=== PATIENT | male | born 1965 | race Caucasian/White ===

== ENCOUNTER 2024-09-15 15:58 | Emergency (ER) | payer OTHER, SELFPAY ==
--- OUTSIDE RECORDS SUMMARY | 2024-09-15 16:00 | XMS REPORT | Continuity of Care Document ---
Author Name Unknown Address [address] [facility] [address] [place] [address] [facility] thconnect Address [address] [facility] [address] [place] [address] Care Team Providers Care Driver Examiner Name Role Phone Unavailable Unavailable Unavailable Payers Payer Name Policy Type Policy Number Effective Date Expirati on Date Source Encounters Start Date/Time End Date/Time Encounter Type Admission Type Attending Clinicians Care Facility Care Department Encounter ID Source 2024-04-02 10:48:00 Inpatient [facility] [id number] [facility] 2024-03-07 13:41:00 Inpatient [facility] [id number] [facility]
[2024-09-15] MEDS ORDERED: MORPHINE 4 MG/ML SYR ONE ×3 (16:40→23:04)
[2024-09-15] MEDS ORDERED: ONDANSETRON 4 MG/2 ML VIAL ONE ×2 (16:40→22:52)
[2024-09-15] MEDS ORDERED: DIAZEPAM 10 MG/2 ML INJ SYRINGE ONE ×2 (17:33→23:51)
--- NOTE | 2024-09-15 18:53 | ER ---
Nurse's Notes [facility] Name: Antonio Jade Age: 59 yrs Sex: Male : 1965 Arrival Date: 09/15/2024 Time: 15:58 Bed 24 Private MD: Diagnosis: Grade 2 left renal laceration, Fractures lateral left 9th rib and posterior lateral left 10th rib. Moderate left pleural effusion Presentation: 09/15 16:21 Coronavirus screen: Client denies travel out of the [place] in the last 14 days. At this ll1 time, the client does not indicate any symptoms associated with coronavirus-19. Ebola Screen: Patient denies travel to an Ebola-affected area in the 21 days before illness onset. Initial Sepsis Screen: Does the patient meet any 2 criteria? No. Patient's initial sepsis screen is negative. Does the patient have a suspected source of infection? No. Patient's initial sepsis screen is negative. Risk Assessment: Do you want to hurt yourself or someone else? Patient reports no desire to harm self or others. Onset of symptoms was September 12, 2024. 16:21 Method Of Arrival: Wheelchair ll1 16:21 Acuity: ANABELLE 3 ll1 16:21 Chief complaint: Patient states: Severe L sided rib pains since Sunday. Has 5 ribs ll1 broken per [place]. Didn't want to be admitted, but cannot sleep. Triage Assessment: 16:22 General: Appears distressed, uncomfortable, Behavior is cooperative, appropriate for ll1 age, restless. Pain: Complains of pain in right lateral anterior chest. Respiratory: Reports shortness of breath pain with respiration states has 5 broken ribs. Historical: - Allergies: 16:20 No Known Allergies; ll1 - PMHx: 16:20 Hypertensive disorder; ll1 - PSHx: 16:20 shoulder surgery; ll1 - Immunization history:: Adult Immunizations up to date. - Social history:: Smoking status: Patient denies any tobacco usage or history of. Screenin/22 00:53 [facility] ED Fall Risk Assessment (Adult) History of falling in the last 3 months, jb4 including since admission Yes- single mechanical fall (1 pt) Confusion or Disorientation No (0 pts) Intoxicated or Sedated No (0 pts) Impaired Gait No (0 pts) Mobility Assist Device Used No (0 pt) Altered Elimination No (0 pt) Score/Fall Risk Level 0 - 2 = Low Risk Oriented to surroundings, Maintained a safe environment. Abuse screen: Denies threats or abuse. Nutritional screening: No deficits noted. Tuberculosis screening: No symptoms or risk factors identified. Assessment: 09/15 17:00 General: Appears in no apparent distress. uncomfortable, Behavior is cooperative, jb4 anxious. Pain: Complains of pain in left lateral anterior chest Pain does not radiate. Pain currently is 10 out of 10 on a pain scale. Neuro: Level of Consciousness is awake, alert, obeys commands, Oriented to person, place, time, situation. Cardiovascular: Patient's skin is warm and dry. Respiratory: Airway is patent Respiratory effort is even, unlabored, Respiratory pattern is regular, symmetrical. GI: No signs and/or symptoms were reported involving the gastrointestinal system. : No signs and/or symptoms were reported regarding the genitourinary system. EENT: No signs and/or symptoms were reported regarding the EENT system. Derm: Skin is intact, Skin is pink, warm \T\ dry. 18:00 Reassessment: Patient appears in no apparent distress at this time. Patient and/or jb4 family updated on plan of care and expected duration. Pain level reassessed. Patient is alert, oriented x 3, equal unlabored respirations, skin warm/dry/pink. 19:00 Reassessment: Patient appears in no apparent distress at this time. Patient and/or jb4 family updated on plan of care and expected duration. Pain level reassessed. Patient is alert, oriented x 3, equal unlabored respirations, skin warm/dry/pink. Patient states feeling better. 20:00 Reassessment: Pt is resting in bed with eyes closed, respirations are even and jb4 unlabored. 21:14 Reassessment: Patient appears in no apparent distress at this time. No changes from jb4 previously documented assessment. Patient and/or family updated on plan of care and expected duration. Pain level reassessed. 22:00 Reassessment: Patient appears in no apparent distress at this time. Patient and/or jb4 family updated on plan of care and expected duration. Pain level reassessed. Patient is alert, oriented x 3, equal unlabored respirations, skin warm/dry/pink. 23:00 Reassessment: Patient appears in no apparent distress at this time. Patient and/or jb4 family updated on plan of care and expected duration. Pain level reassessed. Patient is alert, oriented x 3, equal unlabored respirations, skin warm/dry/pink. 09/16 00:00 Reassessment: Pt resting comfortably in bed with eyes closed, on 2L NC due to desat to jb4 88% while sleeping. 00:56 Reassessment: Pt remains on 2L NC, Resting with eyes closed,respirations are even and jb4 unlabored with no s/s of pain or distress noted at this time. 02:07 Reassessment: Patient appears in no apparent distress at this time. Patient and/or jb4 family updated on plan of care and expected duration. Pain level reassessed. Patient is alert, oriented x 3, equal unlabored respirations, skin warm/dry/pink. Vital Signs: 09/15 16:21 BP 174 / 119; Pulse 94; Resp 18; Temp 97.5; Pulse Ox 99% ; Weight 95.25 kg; Height 6 ll1 ft. 0 in. ; Pain 10/10; 16:48 BP 170 / 110; Pulse 89; Resp 16; Pulse Ox 98% on R/A; jb4 19:44 BP 156 / 95; Pulse 95; Resp 16; Pulse Ox 93% on R/A; jb4 20:15 BP 165 / 107; Pulse 89; Resp 15; Pulse Ox 95% on R/A; jb4 20:58 BP 149 / 90; Pulse 92; Resp 15; Pulse Ox 92% on R/A; jb4 22:30 BP 132 / 81; Pulse 84; Resp 15; Pulse Ox 92% on R/A; jb4 23:30 BP 137 / 91; Pulse 91; Resp 16; Pulse Ox 93% on R/A; jb4 09/16 00:45 BP 150 / 104; Pulse 85; Resp 15; Pulse Ox 99% on 2 lpm NC; jb4 09/15 16:21 Body Mass Index 28.48 (95.25 kg, 182.88 cm) ll1 09/15 16:21 Pain Scale: Adult ll1 ED Course: 09/15 16:00 Patient arrived in ED. ra3 16:02 Arm band placed on. ll1 16:16 Perico Ventura MD is Attending Physician. bo1 16:21 Triage completed. ll1 16:45 Inserted saline lock: 18 gauge in right antecubital area, using aseptic technique. jb4 18:51 Lore Chiu FNP is Hospitalizing Provider. bo1 20:21 Urinalysis w/ reflexes Sent. jb4 20:22 Basic Metabolic Panel Sent. jb4 20:22 CBC with Diff Sent. jb4 20:39 CT Chest Wo Con In Process Unspecified. EDMS 20:54 Chance Gutierrez, RN is Primary Nurse. jb4 22:35 Attending Physician role handed off by Perico Ventura MD sp4 22:35 Alpesh Urena MD is Attending Physician. sp4 23:32 CT Chest, Abdomen, Pelvis - W/Contrast In Process Unspecified. EDMS 09/16 00:51 Initiated transfer with Megan at [facility]. rv1 00:53 Patient has correct armband on for positive identification. Bed in low position. Call jb4 light in reach. Side rails up X 1. Provided Education on: plan of care. 00:54 No provider procedures requiring assistance completed. Patient transferred, IV remains jb4 in place. 01:[address] Darling to [facility] ER. rv1 01:10 Maged with [facility] gave 15 min ETA. rv1 Administered Medications: 09/15 16:47 Drug: morphine IVP or IV 4 mg IVP once over 4 mins Route: IVP; Infused Over: 4 mins; jb4 Site: right antecubital; 17:11 Follow up: Response: No adverse reaction; Pain is unchanged, physician notified; RASS: jb4 Alert and Calm (0) 16:48 Drug: Ondansetron IVP 4 mg IVP once; over 2 minutes Route: IVP; Site: right antecubital;jb4 17:41 Follow up: Response: No adverse reaction; Marked relief of symptoms jb4 17:11 Drug: morphine IVP or IV 4 mg IVP once over 4 mins Route: IVP; Infused Over: 4 mins; jb4 Site: right antecubital; 17:41 Follow up: Response: No adverse reaction; Pain is unchanged, physician notified; RASS: jb4 Alert and Calm (0) 17:39 Drug: Diazepam IVP 5 mg IVP once Route: IVP; Site: right antecubital; jb4 18:00 Follow up: Response: No adverse reaction; Pain is decreased; RASS: Drowsy (-1) jb4 19:20 Drug: HYDROmorphone IVP 1 mg IVP once Route: IVP; Site: right antecubital; jb4 19:50 Follow up: Response: No adverse reaction; Marked relief of symptoms; Pain is decreased; jb4 RASS: Drowsy (-1) 22:57 Drug: morphine IVP or IV 4 mg IVP once over 4 mins Route: IVP; Infused Over: 4 mins; jb4 Site: right antecubital; 23:21 Follow up: Response: No adverse reaction; Marked relief of symptoms jb4 22:57 Drug: Ondansetron IVP 4 mg IVP once; over 2 minutes Route: IVP; Site: right antecubital;jb4 23:21 Follow up: Response: No adverse reaction; Marked relief of symptoms jb4 23:10 Drug: morphine IVP or IV 4 mg IVP once over 4 mins Route: IVP; Infused Over: 4 mins; jb4 Site: right antecubital; 23:21 Follow up: Response: No adverse reaction; Marked relief of symptoms jb4 23:53 Drug: Diazepam IVP 5 mg IVP once Route: IVP; Site: right antecubital; jb4 09/16 02:08 Follow up: Response: No adverse reaction; Marked relief of symptoms jb4 00:30 Drug: NS 0.9% IV 1000 ml IV at 125 ml/hr continuous Route: IV; Rate: 125 ml/hr; Site: jb4 right antecubital; 02:08 Follow up: Response: No adverse reaction; Marked relief of symptoms; IV Status: jb4 Infusion continued upon transfer 01:42 Drug: HYDROmorphone IVP 1 mg IVP once Route: IVP; Site: right antecubital; jb4 02:08 Follow up: Response: Medication Administered at Departure jb4 Outcome: 09/15 18:52 Decision to Hospitalize by Provider. bo1 09/16 00:55 ER care complete, transfer ordered by MD. [email or web address] 02:07 Transferred by ground EMS to [facility], Transfer form jb4 completed. X-rays sent w/ patient. 02:07 Condition: stable 02:07 Discharge instructions given to patient, Instructed on the need for transfer, Demonstrated understanding of instructions, 02:08 Patient left the ED. jb4 Signatures: Dispatcher [employer] EDChance Charles RN RN jb4 Delonte Cloud RN RN ll1 Pam Biggs rv1 Alpesh Urena MD MD sp4 Narda Preston ra3 Perico Ventura MD MD bo1 Corrections: (The following items were deleted from the chart) 09/15 17:41 17:30 Response: No adverse reaction; Marked relief of symptoms; Pain is unchanged, jb4 physician notified; RASS: Alert and Calm (0) jb4
--- NOTE | 2024-09-15 18:53 | EDPHYS ---
Physician Documentation [facility] Name: Antonio Jade Age: 59 yrs Sex: Male : 1965 Arrival Date: 09/15/2024 Time: 15:58 Bed 24 Private MD: ED Physician Alpesh Urena HPI: 09/15 18:39 This 59 yrs old Male presents to ER via Wheelchair with complaints of Fall Injury - bo1 ribcage inj. 18:39 Details of fall: The patient fell and struck a concrete surface, Steps outside the [facility] house, found on the ground by GF on Sunday. Onset: The symptoms/episode began/occurred suddenly. Associated injuries: The patient sustained injury to the chest, specifically the right lateral anterior chest, pain with breathing, pain with movement, tenderness, Ribs #5-[address] at [facility] (nondisplaced) Report provided by pt. Severity of symptoms: in the emergency department the symptoms are actually worse, moderately, Pt was recommended on Sunday, yesterday, to be admitted for pain control. He opted to trial OP on Tramadol. He had left over hydrocodone and was newly rx'ed tramadol. Both taken x 1 w/o pain relief. No LOC, shallow breathing due to the pain. Pain is intermittent and severe. Pt is unable to get comfortable. Historical: - Allergies: 16:20 No Known Allergies; ll1 - PMHx: 16:20 Hypertensive disorder; ll1 - PSHx: 16:20 shoulder surgery; ll1 - Immunization history:: Adult Immunizations up to date. - Social history:: Smoking status: Patient denies any tobacco usage or history of. ROS: 18:43 Constitutional: Negative for fever, chills. bo1 18:43 Neck: Negative for injury or acute deformity, acute changes, 18:43 Cardiovascular: Positive for chest pain, Left ribs, 18:43 Respiratory: Negative for shortness of breath, Pt is breathing shallow scott due to the pain to the ribs, 18:43 Skin: Negative for abrasions, ecchymosis, rash, 18:43 All other systems are negative, Exam: 18:46 Constitutional: This is a well developed, well nourished patient who is awake, alert, bo1 and moderate acute distress. 18:46 Neck: External neck: is normal, 18:46 Chest/axilla: Inspection: abrasion, is not appreciated, Palpation: tenderness, that is severe, that totally reproduces the patient's complaints, Ribs on the left, 18:46 Respiratory: the patient does not display signs of respiratory distress, Respirations: shallow respirations, Breath sounds: are clear throughout, 18:46 Skin: Intact. 19:59 ECG was reviewed by the Attending Physician. bo1 19:59 Abdomen/GI: Inspection: abdomen appears normal, Palpation: abdomen is soft and non-tender, Vital Signs: 16:21 BP 174 / 119; Pulse 94; Resp 18; Temp 97.5; Pulse Ox 99% ; Weight 95.25 kg; Height 6 ll1 ft. 0 in. ; Pain 1010; 16:48 BP 170 / 110; Pulse 89; Resp 16; Pulse Ox 98% on R/A; jb4 19:44 BP 156 / 95; Pulse 95; Resp 16; Pulse Ox 93% on R/A; jb4 20:15 BP 165 / 107; Pulse 89; Resp 15; Pulse Ox 95% on R/A; jb4 20:58 BP 149 / 90; Pulse 92; Resp 15; Pulse Ox 92% on R/A; jb4 22:30 BP 132 / 81; Pulse 84; Resp 15; Pulse Ox 92% on R/A; jb4 23:30 BP 137 / 91; Pulse 91; Resp 16; Pulse Ox 93% on R/A; jb4 09/16 00:45 BP 150 / 104; Pulse 85; Resp 15; Pulse Ox 99% on 2 lpm NC; jb4 09/15 16:21 Body Mass Index 28.48 (95.25 kg, 182.88 cm) ll1 09/15 16:21 Pain Scale: Adult ll1 MDM: 09/15 16:16 Medical Screening Exam initiated bo1 18:44 Differential diagnosis: contusion, fracture. Consideration of Admission/Observation bo1 Patient was admitted/placed on observation. for pain control. Response to treatment: the patient's symptoms have mildly improved after treatment, Pt has periods of rest but will intermittently "howl" in pain due to sudden exacerbation. ED course: Due to the amount of morphine needed for comfort and attempts to reduce spasm of the rib muscles, best to obs overnight for pain control. 18:46 Data reviewed: vital signs, diagnostic data from outside facility. bo1 09/16 00:52 ED course: Chest Abdomen Pelvis W Cont CLINICAL HISTORY: 59 years Male Chest pain. sp4 COMPARISON: CT Chest without IV contrast 09/15/2024 and CTAbdomen pelvis 02/23/2022 Report only. TECHNIQUE: Images were obtained in axial, coronal and sagittal planes. Intravenous contrast administration. This exam was performed according to our departmental dose-optimization program which includes use of Automated Exposure Control, adjustment of the mA and/or kV according to patient size and/or use of iterative reconstruction technique. FINDINGS: CT chest: No aortic dissection or dilatation. No abnormality pulmonary arteries bilaterally. No pericardial effusion. No adenopathy. No right pleural effusion. Moderate left pleural effusion. Fractures lateral left ninth rib and posterior lateral left 10th rib. No pneumothorax bilaterally. Airspace attenuation left lower lobe consistent with atelectatic change versus infiltrate or contusion. Additional mild airspace attenuation right lower lobe likely atelectatic change. No sternal fracture. Height of the thoracic vertebral bodies is intact. Calcification anterior longitudinal ligament. Costovertebral junctions intact all levels. CT abdomen and pelvis: No abnormality involving the liver, spleen, pancreas, or adrenal glands bilaterally. Prior cholecystectomy. 6 mm defect posterior left kidney possibly small laceration. This finding is best identified on axial series 201 image 93. No extravasation of urine or contrast seen. No cortical defects on the right. No obstructing renal or ureteral calculi bilaterally. No hydronephrosis bilaterally. No perinephric fluid collections bilaterally. Marked bladder distention. Appendix within normal limits. No bowel obstruction, perforation, or inflammation. No abnormality of the abdominal aorta or portal vein. No adenopathy or abnormal fluid collections seen. No acute osseous abnormality involving the lumbosacral or pelvis. IMPRESSION: 1. Fractures lateral left ninth rib and posterior lateral left 10th rib. Moderate left pleural effusion with atelectatic change versus infiltrate or contusion left lower lobe. No pneumothorax bilaterally. 2. 6 mm defect posterior left kidney possibly small laceration. This would be considered grade 2 renal laceration. No extravasation of urine or contrast seen. No additional abnormalities seen. Electronically signed by: Mamta Tsang MD 09/16/2024 12:32 AM . 00:56 ED course: CT - Chest - COMPARISON: None FINDINGS: Nondisplaced fracture fifth left sp4 lateral rib Minimally displaced fracture 6,7 and 8th left lateral ribs. Nondisplaced fracture ninth and 10th left lateral ribs Small left pleural effusion with mild left lower lobe atelectasis No pneumothorax No mediastinal or hilar lymphadenopathy No pericardial effusion Left renal cyst incompletely evaluated on this exam IMPRESSION: Multiple left rib fractures with small left pleural effusion No pneumothorax. 09/15 19:34 Order name: Basic Metabolic Panel; Complete Time: 22:35 bo1 09/15 19:34 Order name: CBC with Diff; Complete Time: 20:37 bo1 09/15 19:34 Order name: Urinalysis w/ reflexes; Complete Time: 20:37 bo1 09/15 19:20 Order name: CT Chest Wo Con; Complete Time: 22:35 bo1 09/15 22:39 Order name: CT Chest, Abdomen, Pelvis - W/Contrast sp4 09/15 19:34 Order name: EKG; Complete Time: 19:34 bo1 09/15 16:34 Order name: Saline Lock; Complete Time: 16:48 bo1 09/15 19:34 Order name: EKG - Nurse/Tech; Complete Time: 19:58 bo1 09/15 19:34 Order name: Labs collected and sent; Complete Time: 20:21 bo1 EC/21 19:59 Rate is 95 beats/min. Rhythm is regular. QRS [place] is Normal. [place] interval is normal. QRS bo1 interval is normal. QT interval is normal. No Q waves. T waves are Normal. No ST changes noted. Clinical impression: Normal ECG. Interpreted by me. Reviewed by me. Administered Medications: 16:47 Drug: morphine IVP or IV 4 mg IVP once over 4 mins Route: IVP; Infused Over: 4 mins; 4 Site: right antecubital; 17:11 Follow up: Response: No adverse reaction; Pain is unchanged, physician notified; RASS: [facility] Alert and Calm (0) 16:48 Drug: Ondansetron IVP 4 mg IVP once; over 2 minutes Route: IVP; Site: right antecubital;[facility] 17:41 Follow up: Response: No adverse reaction; Marked relief of symptoms [facility] 17:11 Drug: morphine IVP or IV 4 mg IVP once over 4 mins Route: IVP; Infused Over: 4 mins; 4 Site: right antecubital; 17:41 Follow up: Response: No adverse reaction; Pain is unchanged, physician notified; RASS: 4 Alert and Calm (0) 17:39 Drug: Diazepam IVP 5 mg IVP once Route: IVP; Site: right antecubital; jb4 18:00 Follow up: Response: No adverse reaction; Pain is decreased; RASS: Drowsy (-1) jb4 19:20 Drug: HYDROmorphone IVP 1 mg IVP once Route: IVP; Site: right antecubital; jb4 19:50 Follow up: Response: No adverse reaction; Marked relief of symptoms; Pain is decreased; jb4 RASS: Drowsy (-1) 22:57 Drug: morphine IVP or IV 4 mg IVP once over 4 mins Route: IVP; Infused Over: 4 mins; jb4 Site: right antecubital; 23:21 Follow up: Response: No adverse reaction; Marked relief of symptoms 4 22:57 Drug: Ondansetron IVP 4 mg IVP once; over 2 minutes Route: IVP; Site: right antecubital;4 23:21 Follow up: Response: No adverse reaction; Marked relief of symptoms jb4 23:10 Drug: morphine IVP or IV 4 mg IVP once over 4 mins Route: IVP; Infused Over: 4 mins; jb4 Site: right antecubital; 23:21 Follow up: Response: No adverse reaction; Marked relief of symptoms jb4 23:53 Drug: Diazepam IVP 5 mg IVP once Route: IVP; Site: right antecubital; 4 09/16 02:08 Follow up: Response: No adverse reaction; Marked relief of symptoms [facility] 00:30 Drug: NS 0.9% IV 1000 ml IV at 125 ml/hr continuous Route: IV; Rate: 125 ml/hr; Site: jb4 right antecubital; 02:08 Follow up: Response: No adverse reaction; Marked relief of symptoms; IV Status: jb4 Infusion continued upon transfer 01:42 Drug: HYDROmorphone IVP 1 mg IVP once Route: IVP; Site: right antecubital; jb4 02:08 Follow up: Response: Medication Administered at Departure jb4 Disposition Summary: 09/16/24 00:55 Transfer Ordered Notes: Transfer Location: [facility]-System sp4 Reason: Higher level of care sp4 Condition: Stable(09/16/24 00:55) sp4 Problem: new(09/16/24 00:55) sp4 Symptoms: have improved(09/16/24 00:55) sp4 Accepting Physician: [facility] trauma service - Dr. Darling(09/16/24 02:08) jb4 Diagnosis - Grade 2 left renal laceration, Fractures lateral left 9th rib and posterior sp4 lateral left 10th rib. Moderate left pleural effusion Forms: - Medication Reconciliation Form sp4 - SBAR form sp4 Signatures: Dispatcher [employer] EDMS Alejandrina Lau, RN RN cg Chance Gutierrez RN RN jb4 Delonte Cloud RN RN ll1 Pam Biggs1 Alpesh Urena MD MD sp4 Perico Ventura MD MD bo1 Corrections: (The following items were deleted from the chart) 09/15 19:12 18:43 Cardiovascular: Positive for chest pain, Right ribs, bo1 bo1 19:13 18:46 Neck: External neck: is normal, bo1 bo1 19:13 18:46 Chest/axilla: Inspection: abrasion, is not appreciated, Palpation: tenderness, bo1 that is severe, that totally reproduces the patient's complaints, Ribs on the right, bo1 19:14 18:52 Multiple fractures of ribs, right side bo1 bo1 20:00 19:12 Chest/axilla: bo1 bo1 20:22 18:52 bo1 rv1 09/16 00:47 09/15 20:22 224 rv1 cg 09/16 00:53 09/15 18:52 Observation bo1 sp4 09/16 00:53 09/15 18:52 Lore Chiu bo1 sp4 09/16 00:53 09/15 18:52 Telemetry/MedSurg (observation) bo1 sp4 09/16 00:53 09/15 18:52 Fair bo1 sp4 09/16 00:53 09/15 18:52 new bo1 sp4 09/16 00:53 09/15 18:52 are unchanged bo1 sp4 09/16 00:53 09/15 18:52 Standard bo1 sp4 09/16 00:53 09/15 18:52 Fall (on) (from) other stairs and steps bo1 sp4 09/16 00:53 09/15 18:52 Chest pain, unspecified bo1 sp4 09/16 00:53 09/15 19:14 Multiple fractures of ribs, left side bo1 sp4 09/16 00:53 00:47 cg sp4 01:01 00:55 [facility] trauma service sp4 sp4 02:08 01:01 [facility] trauma service - Person sp4 jb4
[2024-09-15] MEDS ORDERED: HYDROMORPHONE HCL 1 MG/ML INJ ONE (19:12)
[2024-09-15 20:32] LABS: Specific Gravity > 1.030 (1.005-1.030); Sqamous Epithelial <5 /HPF (None Seen); Urine Bacteria None Seen /HPF (<20); Urine Bilirubin NEGATIVE (Negative); Urine Blood Negative (Negative); Urine Clarity Extremely Turbid (Clear); Urine Color Yellow (Yellow); Urine Crystals Unidentified Few /HPF (None Seen); Urine Culture Reflex Order NOT NEEDED; Urine Glucose NEGATIVE (Negative); Urine Ketones NEGATIVE (Negative); Urine Microscopic Reflex YN ORDER UMIC; Urine Mucus 4+ /HPF (None Seen); Urine Nitrite NEGATIVE (Negative); Urine Protein 1+ (Negative); Urine RBC <5 /HPF (None Seen); Urine Urobilinogen 1+ (Normal); Urine WBC <5 /HPF (<5); Urine WBC Clump Rare /HPF (None Seen); Urine Yeast (Budding) Trace /HPF (None Seen)
[2024-09-15 20:34] LABS: Absolute Monocytes 1.2 K/uL (0.1-1.3); Absolute Neutrophil 6.2 K/uL (1.8-8.0); Basophils % 0.4 % (0-1.3); Eosinophils % 0.1 % (0-4.4); Hematocrit 47.6 % (39.6-49.0); Hemoglobin 16.3 g/dL (13.6-17.9); Lymphocytes % 12.3 % (15.3-44.8); MCH 33.1 pg (27.0-35.0); MCHC 34.3 g/dL (32.0-36.0); MCV 96.4 fL (80-100); MPV 9.2 fL (7.6-11.3); Monocytes % 13.8 % (3.3-12.3); Neutrophils % 73.4 % (41.7-73.7); Nucleated Red Blood Cells % 0.4 % (0-0); Platelets 149 thou/uL (152-406); RBC Red Blood Cell Count 4.93 M/uL (4.33-5.43)
[2024-09-15 20:41] LABS: Anion Gap 7.3 mEq/L (5.0-15.0); Potassium 4.3 mEq/L (3.5-5.1)
--- NOTE | 2024-09-15 21:18 | RAD REPORT ---
EXAM:Thorax Wo Con CLINICAL INDICATION: Chest pain TECHNIQUE: CT chest performed.. Axial, sagittal and coronal reconstructions were obtained. One or mor e of the following dose reduction techniques were used: Automated exposure control, adjustment of the mA and/or kV according to the patient size, and/or iterative reconstruction. Unless otherwise specified, incidental findings do not require dedicated imaging follow-up. [id number]. COMPARISON: None FINDINGS: Nondisplaced fracture fifth left lateral rib Minimally displaced fracture 6,7 and 8th left lateral ribs. Nondisplaced fracture ninth and 10th left lateral ribs Small left pleural effusion with mild left lower lobe atelectasis No pneumothorax No mediastinal or hilar lymphadenopathy No pericardial effusion Left renal cyst incompletely evaluated on this exam IMPRESSION: Multiple left rib fractures with small left pleural effusion No pneumothorax
[2024-09-16] MEDS ORDERED: NA CHLORIDE 0.9% 1,000 ML ONE (00:09)
--- NOTE | 2024-09-16 00:35 | RAD REPORT ---
EXAM DESCRIPTION: Chest Abdomen Pelvis W Cont CLINICAL HISTORY: 59 years Male Chest pain. COMPARISON: CT Chest without IV contrast 09/15/[address] Abdomen pelvis 02/23/2022 Report only. TECHNIQUE: Images were obtained in axial, coronal and sagittal planes. Intravenous contrast administration. This exam was performed according to our departmental dose-optimization program which includes use of Automated Exposure Control, adjustment of the mA and/or kV according to patient size and/or use of it erative reconstruction technique. FINDINGS: CT chest: No aortic dissection or dilatation. No abnormality pulmonary arteries bilaterally. No peric ardial effusion. No adenopathy. No right pleural effusion. Moderate left pleural effusion. Fractures lateral left ninth rib and posterior lateral left 10th rib. No pneumothorax bilaterally. rspace attenuation left lower lobe consistent with atelectatic change versus infiltrate or contusion. Additional mild airspace attenuation right lower lobe likely atelectatic change. No sterna l fracture. Height of the thoracic vertebral bodies is intact. Calcification anterior longitudinal ligament. Costovertebral junctions intact all levels. CT abdomen and pelvis: No abnormality involving the liver, spleen, pancreas, or adrenal glands bilate rally. Prior cholecystectomy. 6 mm defect posterior left kidney possibly small laceration. This finding is best identified on axial series 201 image 93. No extravasation of urine or contrast seen. No cortical defects on the right. No obstructing renal or ureteral calculi bilaterally. No hydronephrosis bilaterally. No perinephric fluid collections bilaterally. Marked bladder distention. Appendix within normal limits. No bowel obstruction, perforation, or inflammation. No abnormality of the abdominal aorta or portal vein. No adenopathy or abnormal fluid collections seen. No acute oss eous abnormality involving the lumbosacral or pelvis. IMPRESSION: 1. Fractures lateral left ninth rib and posterior lateral left 10th rib. Moderate left pleural effu katherin with atelectatic change versus infiltrate or contusion left lower lobe. No pneumothorax bilaterally. 2. 6 mm defect posterior left kidney possibly small laceration. This would be considered grade 2 re nal laceration. No extravasation of urine or contrast seen. No additional abnormalities seen. Electronically signed by: Mamta Tsang MD 09/16/2024 12:32 AM CDT RP Due to temporary technical issues with the PACS/StartX reporting system, reports are being james d by the in-house radiologist without review as a courtesy to ensure prompt reporting the interpreting radiologist is fully responsible for the content of the report. Transcribed Date/Time: 09/16/2024 12:35 AM
[2024-09-16] MEDS ORDERED: HYDROMORPHONE HCL 1 MG/ML INJ ONE (01:40)
[2024-09-16 08:58] VITALS: TEMP 97.5
[2024-09-16 09:06] VITALS: BP 150/104; O2SAT 99
--- NOTE | 2024-09-16 12:50 | EKG ---
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
== END 2024-09-16 02:08 | disposition short-term general hospital (02) ==
LOC: ER 15:58
DX: S22.42XA Multiple fractures of ribs, left side, initial encounter for closed fracture (principal); S37.052A Moderate laceration of left kidney, initial encounter; J90 Pleural effusion, not elsewhere classified
CPT/HCPCS: 36415; 71250; 71260; 74177; 80048; 81001; 85025; 93005; J1170; J2405; J3360; J7030; Q9967